=== PATIENT | female | born 1950 | race Caucasian/White ===

== ENCOUNTER → 2021-01-05 | Outpatient (CLI) | payer MEDICARE | LOC: MAMMO 13:00 | DX: Z12.31 Encounter for screening mammogram for malignant neoplasm of breast (principal) ==

== ENCOUNTER → 2022-02-17 | Outpatient (CLI) | payer MEDICARE | LOC: MAMMO 15:15 | DX: Z12.31 Encounter for screening mammogram for malignant neoplasm of breast (principal) ==

== ENCOUNTER → 2022-09-03 | Outpatient (CLI) | payer MEDICARE | LOC: RAD 16:17 | DX: J90 Pleural effusion, not elsewhere classified (principal) ==

== ENCOUNTER → 2022-09-16 | Outpatient (CLI) | payer MEDICARE | LOC: RAD 10:44 | DX: K44.9 Diaphragmatic hernia without obstruction or gangrene (principal); R91.8 Other nonspecific abnormal finding of lung field | CPT/HCPCS: Q9967 ==

== ENCOUNTER → 2023-07-27 | Outpatient (CLI) | payer MEDICARE | LOC: RAD 07-20 15:45 → VAS 07-20 15:45 | DX: I35.1 Nonrheumatic aortic (valve) insufficiency (principal); I51.7 Cardiomegaly; J84.9 Interstitial pulmonary disease, unspecified; I27.20 Pulmonary hypertension, unspecified ==

== ENCOUNTER → 2024-02-29 | Outpatient (CLI) | payer MEDICARE | LOC: MAMMO 13:00 | DX: Z12.31 Encounter for screening mammogram for malignant neoplasm of breast (principal) ==